=== PATIENT | male | born 2000 | race Caucasian/White ===

== ENCOUNTER 2024-04-28 10:04 | Emergency (ER) | payer MEDICAID, OTHER ==
[~2024-04-28] VITALS: Ht 185.4 cm; Wt 62.1 kg
[2024-04-28 10:32] LABS: Urine Bacteria None Seen /hpf (None Seen)
[2024-04-28 10:35] VITALS: PULSE 70; RESP 18; O2SAT 99
--- NOTE | 2024-04-28 10:35 | ED.PDOC ---
GI ASSESSMENT HPI Comments 23y M who presents to the ED for chief complaint of abdominal pain. Pt states he has been having abdominal pain since earlier this AM approx 0630. Pt states his pain in located in the epigastric region, radiating to the RLQ and back, constant, rating the pain 7/10, with no associated exacerbating or relieving factors. Pt has associated nausea and subjective fever but otherwise denies vomiting, diarrhea, cough, chills, headache, dizziness. Pt otherwise denies any recent sick contacts. Pt does endorse EtOH use. Pt denies any other symptoms at this time. Pt has stable vitals in the ED. Chief Complaint: Abdominal Pain Time Seen by MD: 10:33 Primary Care Provider: NONE Reviewed Notes: Nurses Notes, Medications, Allergies Allergies: Coded Allergies: NO KNOWN ALLERGIES (Unverified , 04/28/24) Home Meds Active Scripts Pantoprazole Sodium Sesquihydr (Protonix) 40 Mg Tab, 40 MG PO DAILY, #30 TAB Prov:HARPAL HERNANDEZ MD 04/28/24 Ondansetron Odt 4MG Tab (ZOFRAN PO) 4 Mg Tb, 4 MG PO Q8HP PRN for 5 Days, #15 TAB ODT TAB-DISSOLVE IN MOUTH, THEN SWALLOW Prov:HARPAL HERNANDEZ MD 04/28/24 Information Source: Patient Mode of Arrival: Ambulatory Brought in by: self Timing: Hours Duration: Since onset Prehospital treatment: None Quality: Aching Vomitus: None Stool: Normal Severity: Moderate Recent: Ingestion of ETOH Recent Hx of: None Pain Location: Epigastric, RLQ Modifying Factors: Nothing Associated sign and symptoms: Nausea, Fever Past Medical History PAST MEDICAL HISTORY: Asthma Surgical History: Denies all surgeries Family History Family History: Reviewed,noncontributory to illness Social History Smoker: Non-Smoker Alcohol: Occasionally Drugs: Denies Drug Use Lives In: Home Constitutional: denies: chills, diaphoresis, fatigue, fever, malaise, sweats, weakness, others EENTM: denies: blurred vision, double vision, ear bleeding, ear discharge, ear drainage, ear pain, ear ringing, eye pain, eye redness, hearing loss, mouth pain, mouth swelling, nasal discharge, nose bleeding, nose congestion, nose pain, photophobia, tearing, throat pain, throat swelling, voice changes, others Respiratory: denies: cough, hemoptysis, orthopnea, SOB at rest, shortness of breath, SOB with excertion, stridor, wheezing, others Cardiovascular: denies: chest pain, dizzy spells, diaphoresis, Dyspnea on exertion, edema, irregular heart beat, left arm pain, lightheadedness, palpitations, PND, syncope, others Gastrointestinal: reports: abdominal pain, nausea; denies: abdomen distended, blood streaked bowels, constipated, diarrhea, dysphagia, difficulty swallowing, hematemesis, melena, poor appetite, poor fluid intake, rectal bleeding, rectal pain, vomiting, others Genitourinary: denies: burning, dysuria, flank pain, frequency, hematuria, incontinence, penile discharge, penile sore, pain, testicle pain, testicle swelling, urgency, others Neurological: denies: dizziness, fainting, headache, left sided numbness, left sided weakness, numbness, paresthesia, pre-existing deficit, right sided numbness, right sided weakness, seizure, speech problems, tingling, tremors, weakness, others Musculoskeletal: denies: back pain, gout, joint pain, joint swelling, muscle pain, muscle stiffness, neck pain, others Integumetry: denies: bruises, change in color, change in hair/nails, dryness, laceration, lesions, lumps, rash, wounds, others Allergic/Immunocompromised: denies: Difficulty Healing, Frequent Infections, Hives, Itching, others Hematologic/Lymphatic: denies: anemia, blood clots, easy bleeding, easy bruising, swollen glands, others Endocrine: denies: excessive hunger, excessive sweating, excessive thirst, excessive urination, flushing, intolerance to cold, intolerance to heat, unexplained weight gain, unexplained weight loss, others Psychiatric: denies: anxiety, bipolar disorder, depression, hopeless, panic disorder, schizophrenia, sleepless, suicidal, others All Other Systems: Reviewed and Negative Physical Exam General Appearance: No Apparent Distress HEENT: Normal ENT Inspection, Pharynx Normal, TMs Normal Neck: Full Range of Motion, Non-Tender, Normal, Normal Inspection Respiratory: Chest Non-Tender, Lungs Clear, No Accessory Muscle Use, No Respiratory Distress, Normal Breath Sounds Cardiovascular: No Edema, No JVD, No Murmur, No Gallop, Normal Peripheral Pulses, Regular Rate/Rhythm Breast Exam: Deferred Gastrointestinal: No Organomegaly, Non Tender, No Pulsatile Mass, Normal Bowel Sounds, Soft Genitalia: Deferred Pelvic: Deferred Rectal: Deferred Extremities: No calf tenderness, Normal capillary refill, Normal inspection, Normal range of motion, Non-tender, No pedal edema Musculoskeletal : Apperance: Normal Neurologic: Alert, cylinder filler II-XII nml as Tested, No Motor Deficits, Normal Affect, Normal Mood, No Sensory Deficits Cerebellar Function: Normal Reflexes: Normal Skin: Dry, Normal Color, Warm Lymphatic: No Adenopathy Was a procedure done? Was a procedure done?: No GI differential Dx Differential Diagnosis: Appendicitis, Gastritis/PUD, Gastroenteritis, Pa ncreatitis, Food Poisoning, Bacterial, Viral X-Ray, Labs, Meds, VS Vital Signs Date Time Temp Pulse Resp B/P (MAP) Pulse Ox O2 Delivery O2 Flow Rate FiO2 04/28/24 11:33 53 16 111/69 04/28/24 11:05 56 16 115/50 04/28/24 10:35 70 18 99 Room Air* 0 21 04/28/24 10:34 98.2 70 18 142/88 (106) 99 98.2 04/28/24 10:22 99.5 97 18 129/87 (101) 100 Lab Test 04/28/24 10:43 04/28/24 10:16 Range/Units White Blood Count 5.9 4.4-10.8 10^3/uL Red Blood Count 5.29 4.5-5.90 10^6/uL Hemoglobin 15.7 13.5-17.5 g/dL Hematocrit 46.7 41.0-53.0 % Mean Corpuscular Volume 88.3 80.0-100.0 fL Mean Corpuscular Hemoglobin 29.6 28.0-32.0 pg Mean Corpuscular Hemoglobin Concent 33.5 32.0-36.0 g/dL Red Cell Distribution Width 12.8 11.8-14.3 % Platelet Count 263 140-450 10^3/uL Mean Platelet Volume 9.0 6.9-10.8 fL Neutrophils (%) (Auto) 62.7 37.0-80.0 % Lymphocytes (%) (Auto) 25.7 10.0-50.0 % Monocytes (%) (Auto) 8.9 0.0-12.0 % Eosinophils (%) (Auto) 1.8 0.0-7.0 % Basophils (%) (Auto) 0.9 0.0-2.0 % Neutrophils # (Auto) 3.7 1.6-8.6 10 ^3/uL Lymphocytes # (Auto) 1.5 0.4-5.4 10 ^3/uL Monocytes # (Auto) 0.5 0-1.3 10 ^3/uL Eosinophils # (Auto) 0.1 0-0.8 10 ^3/uL Basophils # (Auto) 0.1 0-0.2 10 ^3/uL Nucleated Red Blood Cells 0.1 % Sodium Level 142 136-145 mmol/L Potassium Level 3.8 3.5-5.1 mmol/L Chloride Level 107 98-107 mmol/L Carbon Dioxide Level 28 20-31 mmol/L Anion Gap 7 5-15 Blood Urea Nitrogen 13 9-23 mg/dL Creatinine 0.97 0.700-1.30 mg/dL Glomerular Filtration Rate Calc 113 >90 mL/min BUN/Creatinine Ratio 13.4 10.0-20.0 Serum Glucose 113 H 74-106 mg/dL Calcium Level 10.3 8.7-10.4 mg/dL Total Bilirubin 0.8 0.2-1.0 mg/dL Aspartate Amino Transferase (AST) 25 13-40 U/L Alanine Aminotransferase (ALT) 49 H 7-40 U/L Alkaline Phosphatase 53 46-116 U/L Total Protein 7.1 5.7-8.2 g/dL Albumin 4.8 3.2-4.8 g/dL Urine Color Colorless Yellow Urine Clarity Turbid H Clear Urine pH 8.0 5.0-9.0 Urine Specific [place] 1.012 1.001-1.035 Urine Protein Negative Negative Urine Ketones Negative Negative Urine Blood Negative Negative /uL Urine Nitrite Negative Negative Urine Bilirubin Negative Negative Urine Urobilinogen Normal Negative mg/dL Urine Leukocyte Esterase Negative Negative /uL Urine RBC <1 0 - 3 /hpf Urine WBC 2 0 - 3 /hpf Urine Squamous Epithelial Cells Few <5 /hpf Urine Amorphous Crystals Few None Seen /hpf Urine Bacteria None seen None Seen /hpf Urine Glucose Normal Normal mg/dL Urine Opiates Screen Neg NEGATIVE Urine Fentanyl Screen Neg NEGATIVE Urine Barbiturates Screen Neg NEGATIVE Urine Phencyclidine Screen Neg NEGATIVE Urine Amphetamines Screen Neg NEGATIVE Urine Benzodiazepines Screen Neg NEGATIVE Urine Cocaine Screen Neg NEGATIVE Urine Cannabinoids Screen Neg NEGATIVE Current Medications Medications (Trade) Dose Ordered Sig/Dorina Route Start Time Stop Time Status Last Admin Ondansetron HCl (Zofran) 4 mg ONCE ONCE IV 04/28/24 10:30 04/28/24 10:31 DC 04/28/24 10:53 Sodium Chloride 1,000 ml @ 1,000 mls/hr Q1H ONCE IVB 04/28/24 10:30 04/28/24 11:29 DC 04/28/24 10:51 Morphine Sulfate 4 mg ONCE ONCE IV 04/28/24 10:30 04/28/24 10:31 DC 04/28/24 11:05 [place] [id number] Ph: [phone] DIAGNOSTIC IMAGING Diagnostic Imaging Report : [id number] Signed PATIENT: LUIS M RODRIGUEZ BACCT: [id number] UNIT: [id number] : 2000 LOC: ER ROOM / BED: / AGE / SEX: 23 / M ADM STATUS: REG ER SERVICE [id number] ORDERING PHYSICIAN: HARPAL HERNANDEZ MD PROCEDURE(s): ABPL - CT AB PEL WO CON-NO ORAL OR IV REASON: pain ORDER NUMBER(s): [id number], ACCESSION NUMBER(s): [id number] CT CT AB PEL WO CON-NO ORAL OR IV INDICATION: pain EXAM DATE: 04/28/2024 10:23 AM COMPARISON: None RADIATION DOSE: CTDIvol: 5.07 mGy, DLP: 283.55 mGy*cm PROCEDURE: Helical CT images were obtained of the abdomen and pelvis without IV contrast Sagittal and coronal reconstructions are provided. ORAL CONTRAST: None. ADDITIONAL IMAGES / REFORMATS: None All CT scans at this medical facility are performed using dose modulation techniques as appropriate to a performed exam including the following: Automated exposure control was utilized; adjustment of the MA and/or KV according to patient size; and use of iterative reconstruction technique. FINDINGS: LUNG BASE: Normal. LIVER: Normal. GALLBLADDER AND BILIARY TREE: No calcified gallstones. Normal caliber wall. No intra- or extrahepatic biliary ductal dilation. PANCREAS: Normal. SPLEEN: Normal. BOWEL: Moderate colonic fecal burden and gas. Appendix is not definitively visualized. ADRENALS: Normal. KIDNEYS AND URETER: Normal. BLADDER: Decompressed with thick brennan. REPRODUCTIVE ORGANS: Normal. LYMPH NODES:No lymphadenopathy. PERITONEUM: No ascites or free air. No other fluid collection. Trace pelvic fluid. VESSELS: Normal. RETROPERITONEUM: Normal. ABDOMINAL WALL: Normal. BONES: Normal. IMPRESSION: No acute intraabdominal abnormality. Moderate colonic fecal burden and gas. Appendix is not definitively visualized. ATED BY: JOSE SOTOMAYOR MD DICTATED DATE/TIME: 04/28/241101 SIGNED BY: JOSE SOTOMAYOR MD SIGNED DATE/TIME: 04/28/241101 CC: At this time, the patient will be discharged The patient was diagnosis acute gastritis as well as constipation The patient was given Protonix and Zofran The patient will return to the emergency department's condition worsens. We have discussed the findings with the patient and he is in agreement with the management The CBC and chemistry panel are within normal limits The urine tox is negative Images Reviewed?: Images reviewed and evaluated by me Time of 1ST Reevaluation: 11:05 Reevaluation 1ST: Unchanged Patient Education/Counseling: Diagnosis, Treatment, Prognosis, Need For Follow Up Family Education/Counseling: No Family Present Departure 1 Departure Time of Disposition: 12:09 Impression: Primary Impression: Abdominal pain Qualified Codes: R10.9 - Unspecified abdominal pain Additional Impression: Acute gastritis Qualified Codes: K29.00 - Acute gastritis without bleeding Disposition: HOME / SELF CARE / HOMELESS Condition: Fair e-Prescriptions Pantoprazole Sodium Sesquihydr (Protonix) 40 Mg Tab 40 MG PO DAILY, #30 TAB Prov: HARPAL HERNANDEZ MD 04/28/24 Ondansetron Odt 4MG Tab (ZOFRAN PO) 4 Mg Tb 4 MG PO Q8HP PRN for 5 Days, #15 TAB ODT TAB-DISSOLVE IN MOUTH, THEN SWALLOW Prov: HARPAL HERNANDEZ MD 04/28/24 Discharged With: Self Critical Care Note Critical Care Time?: No Stability Stability form required: No Heart Score Heart Score: Heart Score Response (Comments) Value History N/A 0 EKG N/A 0 Age N/A 0 Risk Factors N/A 0 Troponin N/A 0 Total 0 I personally scribed for HARPAL HERNANDEZ MD ([email or web address]) on 04/28/24 at 10:35. Electronically submitted by J[facility]on Schilling ([facility] [place] I personally scribed for HARPAL HERNANDEZ MD ([email or web address]) on 04/28/24 at 11:09. Electronically submitted by Jevon Schilling ([email or web address]). HARPAL HERNANDEZ MD Apr 28, 2024 10:35
[2024-04-28] MEDS: SODIUM CHLORIDE 0.9% 1,000 ML IVB ONE (10:51)
[2024-04-28] MEDS: ONDANSETRON HCL 4 MG/2 ML VIAL IV ONE (10:53)
[2024-04-28] MEDS: MORPHINE SULFATE 4 MG/ML SYR/VIAL IV ONE (11:05)
--- NOTE | 2024-04-28 11:05 | DVH ---
CT CT AB PEL WO CON-NO ORAL OR IV INDICATION: pain EXAM DATE: 04/28/2024 10:23 AM COMPARISON: None RADIATION DOSE: CTDIvol: 5.07 mGy, DLP: 283.55 mGy*cm PROCEDURE: Helical CT images were obtained of the abdomen and pelvis without IV contrast Sagittal an d coronal reconstructions are provided. ORAL CONTRAST: None. ADDITIONAL IMAGES / REFORMATS: None All CT scans at this medical facility are performed using dose modulation techniques as appropriate t o a performed exam including the following: Automated exposure control was utilized; adjustment of th e MA and/or KV according to patient size; and use of iterative reconstruction technique. FINDINGS: LUNG BASE: Normal. LIVER: Normal. GALLBLADDER AND BILIARY TREE: No calcified gallstones. Normal caliber wall. No intra- or extrahepatic biliary ductal dilation. PANCREAS: Normal. SPLEEN: Normal. BOWEL: Moderate colonic fecal burden and gas. Appendix is not definitively visualized. ADRENALS: Normal. KIDNEYS AND URETER: Normal. BLADDER: Decompressed with thick brennan. REPRODUCTIVE ORGANS: Normal. LYMPH NODES:No lymphadenopathy. PERITONEUM: No ascites or free air. No other fluid collection. Trace pelvic fluid. VESSELS: Normal. RETROPERITONEUM: Normal. ABDOMINAL WALL: Normal. BONES: Normal. IMPRESSION: No acute intraabdominal abnormality. Moderate colonic fecal burden and gas. Appendix is not definitively visualized.
[2024-04-28 11:09] LABS: Amphetamine Screen, Urine Neg (NEGATIVE); Barbiturate Scree,Urine Neg (NEGATIVE); Benzodiazephine Screen, Urine Neg (NEGATIVE); Cannabinoid Screen, Urine Neg (NEGATIVE); Cocaine Screen, Urine Neg (NEGATIVE); Opiate Scree,Urine Neg (NEGATIVE); Phencyclidine Screen, Urine Neg (NEGATIVE)
[2024-04-28 11:14] LABS: Alanine Aminotransferase 49 U/L (7-40); Albumin 4.8 g/dL (3.2-4.8); Alkaline Phosphatase 53 U/L (46-116); Anion Gap 7 (5-15); Aspartate Aminotransferase 25 U/L (13-40); BUN/Creatinine Ratio 13.4 (10.0-20.0); Blood Urea Nitrogen 13 mg/dL (9-23); Calcium 10.3 mg/dL (8.7-10.4); Carbon Dioxide 28 mmol/L (20-31); Chloride 107 mmol/L (98-107); Glucose 113 mg/dL (74-106); Potassium 3.8 mmol/L (3.5-5.1); Sodium 142 mmol/L (136-145)
[2024-04-28 11:15] LABS: Bilirubin, Total 0.8 mg/dL (0.2-1.0); Total Protein 7.1 g/dL (5.7-8.2)
[2024-04-28 11:41] LABS: Urine Amorphous Crystal FEW /hpf (None Seen); Urine Blood Negative /uL (Negative); Urine Clarity Turbid (Clear); Urine Color Colorless (Yellow); Urine Protein, UAD Negative (Negative); Urine Specific Gravity 1.012 (1.001-1.035); Urine Urobilinogen Normal (Negative); Urine WBC 2 /hpf (0 - 3)
[2024-04-28 11:41] LABS: Basophils # (auto) 0.1 10 ^3/uL (0-0.2); Basophils % (auto) 0.9 % (0.0-2.0); Eosinophils # (auto) 0.1 10 ^3/uL (0-0.8); Eosinophils % (auto) 1.8 % (0.0-7.0); Hematocrit 46.7 % (41.0-53.0); Hemoglobin 15.7 g/dL (13.5-17.5); Lymphocytes # (auto) 1.5 10 ^3/uL (0.4-5.4); Lymphocytes % (auto) 25.7 % (10.0-50.0); Mean Corpuscular Hemoglobin 29.6 pg (28.0-32.0); Mean Corpuscular Hgb Conc. 33.5 g/dL (32.0-36.0); Mean Corpuscular Volume 88.3 fL (80.0-100.0); Monocytes # (auto) 0.5 10 ^3/uL (0-1.3); Monocytes % (auto) 8.9 % (0.0-12.0); Neutrophils # (auto) 3.7 10 ^3/uL (1.6-8.6); Neutrophils % (auto) 62.7 % (37.0-80.0); Nucleated Red Blood Cells % 0.1 %; Platelet Count (auto) 263 10^3/uL (140-450); Red Blood Cells 5.29 10^6/uL (4.5-5.90); Red Cell Distribution Width 12.8 % (11.8-14.3); White Blood Cell 5.9 10^3/uL (4.4-10.8)
[2024-04-28] MEDS ORDERED: PANT40TA2 PO (12:08)
[2024-04-28] MEDS ORDERED: ZOFR4T PO (12:08)
[2024-04-28 12:17] VITALS: BP 120/77; PULSE 57; RESP 16; TEMP 97.6; O2SAT 98
== END 2024-04-28 12:28 | disposition home or self-care (01) ==
LOC: ER 10:04
DX: R10.13 Epigastric pain (principal); K29.00 Acute gastritis without bleeding; J45.909 Unspecified asthma, uncomplicated
CPT/HCPCS: 36415; 74176; 80053; 80307; 81001; 85025; 96361; 96374; 96375; 99285; J2270; J2405; J7030